=== PATIENT | female | born 1955 | race Caucasian/White ===

== ENCOUNTER 2016-11-24 12:23 | Emergency (ER) | payer OTHER ==
[~2016-11-24] VITALS: Ht 152.4 cm; Wt 77.3 kg
[2016-11-24 12:29] VITALS: BP 154/68; PULSE 79; RESP 18; O2SAT 100
[2016-11-24 13:13] LABS: BASOPHILS % (AUTO) 0.3 % (0-3); EOSINOPHILS % (AUTO) 0.8 % (0-5); Mean Corpuscular Hemoglobin 17.4 pg (27.0-35.0); Mean Corpuscular Volume 60.4 fL (81-100); NEUTROPHILS % (AUTO) 78.7 % (40-74); Platelet Count 356 bil/L (150-400)
--- NOTE | 2016-11-24 15:02 | ED.REPORT ---
HPI-General Illness Date of Service Nov 24, 2016 ED Provider: Romel Chavira MD A 72 year old female with a history of hypertension, cirrhosis and diabetes is referred to the ED by her PCP due to anemia. The pt was called by her PCP today and informed that her hemoglobin drawn during a visit one week ago was low at 6.2. She denies associated symptoms including fatigue, weakness, dark stools, rectal bleeding, hematemesis, headache, fever, sore throat, chills, nausea, dysuria, back pain, vomiting, shortness of breath, chest pain or abdominal pain. The pt was informed two years ago that she may have mild anemia, but has not been informed of any abnormalities since. Her hemoglobin was 11.8 in 2015. The pt denies a family history of bleeding disorders. Unclear if any alleviating or exacerbating factors. Unknown if this is been trending downwards and persistent or if this is new, however patient denies symptoms. Nursing Notes Stated Complaint: POSSIBLE LOW HYMOGLOBIN Chief Complaint: General Complaint Nursing Notes Reviewed: Yes Allergies: Coded Allergies: No Known Allergies (Unverified Allergy, Unknown, 11/16/13) General Time Seen by MD: 15:01 Chief Complaint Other (Anemia) Hx Obtained From: Patient, Spouse Arrived By: Walk-in Sudden in Onset?: No Symptom Duration: Since onset Recent Healthcare: No recent hospitalization, Recent doctor visit Similar Sx Previous: No Past Medical History Past Medical History cirrhosis diabetes hypertension Past Surgical History None reported Family History denies family history of bleeding disorders Smoking History Never Smoker Social History Alcohol Use: "Social" Other Social History: Good social support, Ambulatory Status Independent Review of Systems denies dark stools denies rectal bleeding Full Review of Systems Constitutional: Denies: Chills, Fatigue, Fever, Weakness - generalized Eyes: Denies: Diplopia Ears / Nose / Throat: Denies: Sore throat Respiratory: Denies: Non-productive cough, Shortness of breath Cardiovascular: Denies: Chest pain GI: Denies: Abdominal pain, Bloody/tarry stool, Hematemesis, Hematochezia, Nausea, Vomiting Female: Denies: Dysuria Musculoskeletal: Denies: Back pain Skin: Denies Rash Allergy / Immune: Denies: Itching Neurologic: Denies: Headache Psychiatric: Denies: Change mental status Complete sys rev & neg: except as marked. Physical Exam Constitutional: Well-developed, well-nourished. Not diaphoretic. Head: Normocephalic and atraumatic. Mouth/Throat: Oropharynx is clear and moist. No oropharyngeal exudate. Eyes: EOM are normal. Pupils are equal, round, and reactive to light. Neck: Supple, no tracheal deviation. Cardiovascular: Normal rate, regular rhythm. Equal and intact distal pulses throughout. Pulmonary/Chest: Effort normal and breath sounds normal. No respiratory distress. Abdominal: Soft. No distension. There is no tenderness, rebound, or guarding. Bowel sounds present. Rectal: Normal perineal sensation. Hemoccult positive. No external hemorrhoids present. Musculoskeletal: Range of motion grossly intact, moving all extremities. No edema or tenderness appreciated. Neurological: AOx3. Grossly nonfocal exam. Strength and sensation intact and equal to bilateral upper and lower extremities. Skin: Warm and dry, no rashes or pallor appreciated. Psychiatric: Appropriate mood and affect. Behavior appears normal. Vital Signs Vital Signs Date Time Temp Pulse Resp B/P Pulse Ox O2 Delivery O2 Flow Rate FiO2 11/24/16 19:22 72 17 125/31 98 Room Air 11/24/16 12:29 37.0 79 18 154/68 100 Room Air Initial VS: Reviewed Interpretation & Diagnostics Lab Results Interpretation Result Diagram: 11/24/16 1907 11/24/16 1305 Test 11/24/16 13:05 11/24/16 16:00 11/24/16 19:07 Neutrophils (%) (Auto) 78.7% (40-74) Lymphocytes (%) (Auto) 11.9% (14-46) Monocytes (%) (Auto) 8.0% (4-12) Eosinophils (%) (Auto) 0.8% (0-5) Basophils (%) (Auto) 0.3% (0-3) Prothrombin Time 10.0sec (8.1-12.5) Prothromb Time International Ratio 0.94ratio Sodium Level 136mEq/L (134-144) Potassium Level 4.4mEq/L (3.5-5.2) Chloride Level 96mEq/L (97-108) Carbon Dioxide Level 22mmol/L (18-29) Blood Urea Nitrogen 6mg/dL (8-27) Creatinine 0.68mg/dL (0.57-1.00) Estimat Glomerular Filtration Rate 125mL/min (>59) Glucose Level 294mg/dL (60-99) Calcium Level 9.1mg/dL (8.5-10.1) Total Bilirubin 0.2mg/dL (0.0-1.2) Aspartate Amino Transf (AST/SGOT) 19U/L (0-50) Alanine Aminotransferase (ALT/SGPT) 10U/L (0-32) Alkaline Phosphatase 136U/L (25-165) Total Protein 7.2g/dL (6.4-8.4) Albumin 4.0g/dL (3.4-5.0) Hold Purple Top Tube Received (Received) Hold Blue Top Tube Received (Received) Hold Red Top Tube Received (Received) Hold Margaret Top Tube Received (Received) White Blood Count 11.3th/mm3 (3.8-10.1) Red Blood Count 4.27mil/mm3 (3.90-5.20) Hemoglobin 8.9g/dL (12.0-15.6) Hematocrit 28.5% (35.0-46.0) Mean Corpuscular Volume 66.7fL (81-100) Mean Corpuscular Hemoglobin 20.8pg (27.0-35.0) Mean Corpuscular Hemoglobin Concent 31.2% (32.0-37.0) Red Cell Distribution Width 25.4% (12.3-15.4) Platelet Count 336bil/L (150-400) Re-Eval/Medical Decision Med Decision/Clinical Course In summary, 61-year-old female was sent to the ED for evaluation of a low hemoglobin. Differential is broad and includes GI bleed, iron deficiency anemia , other electrolyte abnormality, malignancy, etc. Patient denies any GI bleed symptoms whatsoever, no known history of external or internal hemorrhoids. No history of polyps known. Previous chart noted a history of cirrhosis, however patient denies this and states that she has no problems with her liver when asked explicitly. She does not know if she has been diagnosed with anemia in the past other than being told it was "slightly low" at some point years ago. Most recent hemoglobin here was 11.8 2 years ago. She is completely asymptomatic at this time and does not know why she is here, initially stating that she would like to leave. I discussed the critical nature of her current hemoglobin levels. Her vital signs are grossly within normal limits and she is not tachycardic. She is well-appearing with a normal examination with the exception of a positive Hemoccult. Hemoglobin of 6.2, hematocrit of 21.5, MCV of 60.4. Glucose 294. Given the above, I consulted Dr. Marcial of gastroenterology discussed the patient. He is in agreement that outpatient endoscopy this week is most appropriate for the patient. I consented her for 2 units of packed red blood cells here in the emergency department and a CBC was repeated; levels archie appropriately. After extensive discussion with the patient, despite her significant anemia today and need for transfusion, there is no active overt signs of bleeding and she has normal vital signs; discharge with very close follow-up tomorrow for repeat CBC and to discuss today's visit with her PCP is reasonable. Very careful return precautions were discussed at length, and she was agreeable to the plan as stated, no further questions. Source of Hx: Old records Consultation : Referral / Consult Name: Mirza Marcial MD Call Returned at: 15:56 Machine Attendant: Agrees with eval, Agrees with plan Note: Spoke with JAXON Raygoza, regarding pt's case. Dr. Marcial agrees with the evaluation and plan for follow up. Counseled Regarding: Diagnosis, Lab results, Need for follow-up, When/why to return to ED Discharge & Departure Primary Impression: Anemia Anemia type: unspecified type Qualified Code: D64.9 - Anemia, unspecified Additional Impression: GI bleed GI bleed type/associated pathology: unspecified gastrointestinal hemorrhage type Qualified Code: K92.2 - Gastrointestinal hemorrhage, unspecified Disposition: Home Discharge Condition All VS Reviewed: Yes Condition: Stable Patient Instructions: Anemia (ED), Gastrointestinal Bleeding (ED) Additional Instructions: Thank you for allowing us to be a part of your care. Have your hemoglobin rechecked tomorrow by your primary care physician. Call gastroenterology (Dr. Marcial) tomorrow for a follow up appointment this week. You will need an endoscopy. Return to the emergency department if you develop any new or worsening symptoms including lightheadedness, dark stools, nausea, vomiting, vomiting blood, chest pain, rectal bleeding or abdominal pain. Referrals: Ralf Miller DO (PCP) Mirza Marcial MD Scribe Attestation Portions of this note were transcribed by Kathy Duff. I, Dr. Chavira personally performed the history, physical exam and medical decision-making; I reviewed and confirmed the accuracy of the information in the transcribed note. copies to: Ralf Miller DO; Mirza Marcial MD, William B MD Nov 24, 2016 15:02 KATHY DUFF Nov 24, 2016 15:26
[2016-11-24 15:55] LABS: INR 0.94 ratio
[2016-11-24] MEDS ORDERED: 0.9% Sodium Chloride 250 ML ONE ×2 (16:27→17:45)
[2016-11-24 19:14] LABS: Mean Corpuscular Hemoglobin 20.8 pg (27.0-35.0); Mean Corpuscular Volume 66.7 fL (81-100)
[2016-11-24 19:22] VITALS: BP 125/31; PULSE 72; RESP 17; O2SAT 98
[2016-11-24 20:19] VITALS: BP 130/43; PULSE 77; RESP 16; O2SAT 99
== END 2016-11-24 20:20 | disposition home or self-care (01) ==
LOC: SED 12:23
DX: D64.9 Anemia, unspecified (principal); K92.2 Gastrointestinal hemorrhage, unspecified; E11.9 Type 2 diabetes mellitus without complications; I10 Essential (primary) hypertension; K74.60 Unspecified cirrhosis of liver
CPT/HCPCS: 36415; 80053; 85025; 85027; 85610; 86850; 86922; 99284; J7050